=== PATIENT | female | born 1950 | race Caucasian/White ===

== ENCOUNTER → 2016-08-18 | Outpatient (CLI) | payer MEDICARE ==
[2016-08-18 13:04] VITALS: BP 132/74; PULSE 79; RESP 18
--- NOTE | 2016-08-18 19:53 | P.PN ---
Subjective This is follow-up visit for this patient with a history of severe and chronic pain secondary to osteoarthritis of both the hip joint status post right total hip replacement with complication of infection and she had multiple surgical intervention on her right hip and she had multiple surgical interventions on her right shoulder, she continued to have pain, he is wheelchair-bound and she is not able to ambulate, and she is not candidate for any interventional pain management injection,, and is currently on pain medications 1-opana ER 20 mg twice a day 2- Dilaudid 8 mg every 4 hours when necessary for breakthrough pain 3-Pamelor 25 mg daily at bedtime 4-Provigil 200 mg every morning (patient had obstructive sleep apnea ) Patient denies any side effects of the medication, denies excessive drowsiness or sleepiness, denies suicidal ideation, and reports that the current pain medication is NOT helping To control the pain and improve activity of daily living the VAS 10 /10 without the medications ,and it drope to 7-8 /10 with the medication, he should report that there is some improvement in her pain control , and she feels the curent medication helping her more than the previous medication Physical Examinations : 1-Constitutiona : Cooperative , not in acute distress . 2-HEENT : nech ; supple , no Lymphadenopathy , no Thyromegaly , normal thyroid size . eyes : no ptosis , no icterus, no photophobia . ENT : normal of hearing , normal oropharynx , no Thrush . 3- Respiratory : Chest clear to auscultations Bilaterally , no wheezing , no Rhonchi . 4- Cardiovascular : regular rate and rhythem , S1 , S2 , no S3 , no S4. 5- Gastrointestinal : abdomen soft no tenderness , bowel sounds positive all four quadrents , no organomegally . 6- Genitourinary : Defferred . 7- neurologic : Cranial nerve II to XII intact , no focal neurological deffecit . 8-psychatric : alert , oriented X 3 , appropriate affect , intact judgment and insight . 9-Lymphatic : no Lymphadenopathy . 10- musculoskeltal : Patient is wheelchair-bound not able to ambulate, limited movement in the shoulder and the head joint Assessment and plan = Chronic pain syndrome secondary to osteoarthritis of the shoulder joint and osteoarthritis of the hip joint status post hip replacement with complication of infection, we tried multiple pain medications didn't help to control her pain , currently patient feels there is some improvement in her pain control with the Opana 20 mg twice a day, for this reason I will increase Opana to 30 mg twice a day and patient would continue Dilaudid 8 mg every 4 hours for breakthrough pain, and will continue Pamelor 25 mg daily at bedtime, to help to improve her mood and help her sleep and also improve her pain control, and patient will continue to use Provigil 200 mg every morning because patient had obstructive sleep apnea, Objective - Vital Signs Vital signs: Vital Signs Temp Pulse 79 08/18/16 13:00 Resp 18 08/18/16 13:00 BP 132/74 08/18/16 13:00 Pulse Ox 89 L 08/18/16 13:00 Intake & Output 08/18/16 08/18/16 08/19/16 06:59 18:59 06:59 Weight 56.699 kg
== END | disposition home or self-care (01) ==
LOC: PNWHC3 12:34
PROVIDERS: ATTEND Specialist
DX: M19.011 Primary osteoarthritis, right shoulder (principal); M16.11 Unilateral primary osteoarthritis, right hip; G89.4 Chronic pain syndrome; Z96.641 Presence of right artificial hip joint; Z79.899 Other long term (current) drug therapy; Z99.3 Dependence on wheelchair
CPT/HCPCS: 99211

== ENCOUNTER → 2016-09-28 | Outpatient (CLI) | payer MEDICARE ==
[2016-09-28 12:22] VITALS: BP 103/67; PULSE 69; RESP 16; TEMP 97.8
--- NOTE | 2016-09-29 12:02 | P.PN ---
Subjective This is follow-up visit for this patient with a history of severe and chronic low back pain secondary to osteoarthritis of the hip joint status post right total hip replacement with complication of infection and multiple surgical intervention, and she continued to have generalized pain especially in her right hip and also she had right shoulder pain, she is wheelchair bound, he cannot ambulate and she is not a candidate to any pain management interventions, , and is currently on pain medications 1-opana 30 mg twice a day 2-Dilaudid 8 mg every 4 hours Patient denies any side effects of the medication, denies excessive drowsiness or sleepiness, denies suicidal ideation, and reports that the current pain medication is NOT helping To control the pain and improve activity of daily living Patient reported that her insurance did not approve the Dilaudid 8 mg every 4 hours even though recent prior authorization papers for her insurance company and it was not approved she got only partial amount of the Dilaudid 8 mg every 4 hours Physical Examinations : 1-Constitutiona : Cooperative , not in acute distress . 2-HEENT : nech ; supple , no Lymphadenopathy , no Thyromegaly , normal thyroid size . eyes : no ptosis , no icterus, no photophobia . ENT : normal of hearing , normal oropharynx , no Thrush . 3- Respiratory : Chest clear to auscultations Bilaterally , no wheezing , no Rhonchi . 4- Cardiovascular : regular rate and rhythem , S1 , S2 , no S3 , no S4. 5- Gastrointestinal : abdomen soft no tenderness , bowel sounds positive all four quadrents , no organomegally . 6- Genitourinary : Defferred . 7- neurologic : Cranial nerve II to XII intact , no focal neurological deffecit . 8-psychatric : alert , oriented X 3 , appropriate affect , intact judgment and insight . 9-Lymphatic : no Lymphadenopathy . 10- musculoskeltal : exams of the cervical spine = patient is not able to ambulate wheelchair-bound, Any movement of the hip joint or shoulder joint associated with severe pain, arthritic changes in the hand bilaterally/wrists bilaterally Assessment and plan = chronic pain syndrome secondary to also arthritis of the shoulder/hip with complication of infection - chronic and current use of high-risk medication (Opioids). The patient was counseled about risk of opioid use, psychological risk associated with opioids and was orally counseled to not overuse , divert,or sell dictations to take medications as prescribed only , and to restore medication in safe location , and the patient counseled against driving while using narcotic medications, and also not to use alcohol or any illicit recreational drugs, the patient's verbalized understanding that the lack of compliance will result in failure to renew narcotic prescription and possible discharge from the clinic - diagnoses, prognosis, and treatment options including but not limited to physical therapy, surgical interventions, interventional therapies , and medication management including narcotics and adjuvant medication were discussed with the patient and all The questions answered -medication management =1-continue opana 30 mg twice a day 2- discontinue Dilaudid (her insurance did not approve the full amount of 8 mg every 4 hours ) 2-continue Provigil 200 mg every morning 3-decrease nortriptyline to 20 mg daily at bedtime (currently 25 mg daily at bedtime ). 4-start patient on oxycodone 20 mg every 6 hours when necessary for breakthrough pain dispensing 120 -procedure= none at this time , patient will follow up in the pain clinic in 1 month's Objective - Vital Signs Vital signs: Vital Signs Temp 97.8 F 09/28/16 12:11 Pulse 69 09/28/16 12:11 Resp 16 09/28/16 12:11 BP 103/67 09/28/16 12:11 Pulse Ox 98 09/28/16 12:11 Intake & Output 09/28/16 09/29/16 09/29/16 18:59 06:59 18:59 Weight 56.699 kg
== END | disposition home or self-care (01) ==
LOC: PNWHC3 11:50
PROVIDERS: ATTEND Specialist
DX: G89.4 Chronic pain syndrome (principal); M16.7 Other unilateral secondary osteoarthritis of hip; M19.011 Primary osteoarthritis, right shoulder; Z99.3 Dependence on wheelchair; Z79.891 Long term (current) use of opiate analgesic; Z96.641 Presence of right artificial hip joint
CPT/HCPCS: 99211

== ENCOUNTER → 2016-11-23 | Outpatient (CLI) | payer MEDICARE ==
[2016-11-23 12:34] VITALS: BP 107/75; PULSE 74; RESP 16; TEMP 96.9
--- NOTE | 2016-11-23 12:57 | P.PN ---
Progress Note - Text Patient returns for followup for chronic back and hip pain, s/p RIO complicated by multiple infections. Patient continues on only Opana medications for pain with some relief, as Dilaudid and oxycodone scripts were not covered by patient' s insurance secondary to high opioid doses. Patient denies adverse drug effects from medications. Today, pt denies new-onset weakness, bowel/bladder incontinence, or any other signs or symptoms of cauda equina syndrome. There are no signs of acute intoxication, and no indications of medication diversion or overuse. In addition to above, 13-point review of systems is also negative for chest pain , shortness of breath, changes in vision, changes in hearing, new onset weakness , abdominal pain, diarrhea, extreme fatigue, malaise, fever, skin changes, homicidal or suicidal ideation, or bowel or bladder incontinence. Vital Signs: Reviewed in EMR Gen: WDWN, AAOx3, NAD, wheelchair-bound HEENT: NCAT, EOMI, hearing grossly normal Pulm: resp unlabored Abd: soft, NT, ND Neck: supple, trachea midline ROM in flexion lumbar spine: reduced ROM in extension lumbar spine: reduced Lumbar paravertebral tenderness: + Facet loading: + bilateral Straight leg raise: not performed Imaging: Reviewed in EMR Assessment: 1. hip OA 2. chronic pain syndrome Plan: 1. Explanation: Opioid and psychological risk scores were reviewed. Diagnoses , prognoses, and multiple treatment options including but not limited to physical therapy, interventional therapies, adjuvant medical therapies, narcotic medication therapies, and surgery were discussed with the patient and all questions were answered to the patient's satisfaction. 2. Opioid agreement: Patient has previously signed narcotic agreement, and was orally counseled to not overuse, abuse, divert, or cell medications, and to take them as prescribed by only 1 healthcare provider. The patient was also counseled to store opioid medications in a safe and preferably locked location. Patient was also counseled against driving or operating heavy equipment while using narcotic medications and also to not use alcohol or any illicit or recreational drugs. The patient verbalized understanding that lack of compliance with any of the above and likely result in failure to renew narcotic prescriptions, possible discharge from the clinic, and possible legal ramifications thereafter if indicated. 3. Counseling: The patient was counseled extensively on marijuana and how use of opioids along with it is inappropriate. 4. Procedures: none 5. Consultations: None 6. Investigations: None 7. Medications: Opana 30 mg #60 with one refill; Pamelor 20 mg po qhs prn insomnia 10 mg #60 with two refills 8. Disposition: f/u as needed. Patient has applied for medical marijuana card and will come back to our clinic as needed. Marijuana clinic or PCP can downtitrate Opana if needed as well. PQRS measures: 1-Patient's medications are documented in the chart. 2-Tobacco use is negative 3-Patient has not had a pneumococcal vaccine. 4-Advanced care planning discussed, patient unable to give. 5-Opioid contract signed with the patient. 6-Pain positive, follow-up visit or procedure scheduled 7-Patient's blood pressure measured and documented, and WNL. 8-Patient's weight was measured, and body mass index ABOVE the normal limits, and counseling was done. Patient instructed to follow up with PCP. 9-Patient WAS NOT identified as an unhealthy alcohol user.
== END | disposition home or self-care (01) ==
LOC: PNWHC3 12:12
PROVIDERS: ATTEND Anesthesiology
DX: M16.9 Osteoarthritis of hip, unspecified (principal); G89.4 Chronic pain syndrome; M54.9 Dorsalgia, unspecified; Z79.891 Long term (current) use of opiate analgesic
CPT/HCPCS: 99211

== ENCOUNTER → 2017-12-14 | Outpatient (CLI) | payer MEDICARE ==
[2017-12-14 11:52] LABS: INR 1.1 (<1.2); Prothrombin Time 10.4 sec (9.0-12.0)
[2017-12-14 12:04] LABS: Calcium 9.3 mg/dL (8.4-10.2); Potassium 4.5 mmol/L (3.5-5.1); Total Bilirubin 0.4 mg/dL (0.2-1.3); Total Protein 7.4 g/dL (6.3-8.2)
--- NOTE | 2017-12-14 12:23 | US ---
EXAMINATION TYPE: US abdomen limited DATE OF EXAM: 12/14/2017 COMPARISON: NONE CLINICAL HISTORY: 67-year-old female Hepatitis C B19.20. Prior cholecystectomy. TECHNIQUE: Multiple sonographic images of the right upper quadrant are obtained. FINDINGS: EXAM MEASUREMENTS: Liver Length: 14.1 cm Gallbladder: Surgically absent CBD: 0.3 cm Right Kidney: 8.8 x 4.5 x 4.8 cm Sonography notes: Patient is wheelchair bound and has to help move patient, very little mobil ity Pancreas: not seen due to bowel gas Liver: limited views, intercostal images only, difficult to adequately visualized. Gallbladder: Surgically absent CBD: wnl Right Kidney: Mildly atrophic. No hydronephrosis. IMPRESSION: 1. Exam limitations due to patient's limited mobility. Most of the imaging of the liver was performed intercostally. Very difficult to adequately visualize. If patient has chronic hepatitis C and assess ment for hepatoma is desired, consider liver MRI. 2. Status post cholecystectomy.
[2017-12-17 14:07] LABS: HCV Quant Log 6.52 (<1.08)
== END | disposition home or self-care (01) ==
LOC: RADUSWWP 10:43
PROVIDERS: ATTEND Internal Medicine Infectious Disease
DX: B19.20 Unspecified viral hepatitis C without hepatic coma (principal); Z90.49 Acquired absence of other specified parts of digestive tract
CPT/HCPCS: 36415; 76705; 80053; 84134; 85610; 87522

== ENCOUNTER → 2018-01-05 | Outpatient (CLI) | payer MEDICARE ==
--- NOTE | 2018-01-06 05:10 | MR ---
EXAMINATION TYPE: MR liver wo/w con DATE OF EXAM: 01/05/2018 COMPARISON: NONE HISTORY: Recommended From Ultrasound, ? HepC, Gadavist 6ml CONTRAST: Standard multiplanar, multisequence MRI departmental protocol utilizing 6 mL intravenous Gadavist nallely olinium contrast. FINDINGS: The bile ducts are somewhat dilated. The common bile duct measures up to 1.4 cm. Pancreatic duct measures up to 5 mm. Intrahepatic bile ducts are prominent. There is a 2.2 cm cyst in the left lobe of the liver. There is no evidence of pancreatic mass. Spleen shows no focal defect. There is no sign of ascites. There is no adrenal mass. There is mild renal cortical atrophy. There is no hydrone phrosis. There is no sign of retroperitoneal adenopathy. I see no definite filling defect in the comm on bile duct. IMPRESSION: There is a cyst in the left lobe of the liver. There is some dilation of the biliary tree more than I would expect for postcholecystectomy patient. The distal common bile duct obstructing lesion is not identified. There was a relatively small measurement for the common bile duct of 3 mm on the recent u ltrasound exam of 12/14/2017. Unfortunately the previous ultrasound exam was suboptimal. Since the last exam was not optimal it is not clear if there is a change in the size of the biliary tree. If this p atient does not have signs of a biliary obstruction then this appearance of the bile ducts could be t he patient's stable size.
== END | disposition home or self-care (01) ==
LOC: RADMRIMAIN 17:51
PROVIDERS: ATTEND Internal Medicine Infectious Disease
DX: K76.89 Other specified diseases of liver (principal); B18.2 Chronic viral hepatitis C; Z98.890 Other specified postprocedural states
CPT/HCPCS: 74183; A9581

== ENCOUNTER 2018-08-04 18:13 | Emergency (ER) | payer MEDICARE ==
--- NOTE | 2018-08-04 19:25 | ED ---
General Adult HPI - General Chief complaint: Recheck/Abnormal Lab/Rx Stated complaint: CHEST WHEEZING POSS BLOODCLOT Time Seen by Provider: 08/04/18 19:07 Source: patient, family, RN notes reviewed, old records reviewed Mode of arrival: wheelchair Limitations: no limitations - History of Present Illness Initial comments: 67-year-old female history of rheumatoid arthritis presenting for evaluation of wheezing. Patient's symptoms began approximately one week ago. Patient was sent by primary care physician for computed tomography scan, this was unable to be completed that outpatient CT, was recommended the patient presented to the emergency department for evaluation. Return to the patient's family showed some abnormalities on chest x-ray, primary care physician was concerned about these markings as well as concern for pulmonary embolism. She has recent hip replacement approximately 3 weeks ago. Denies chest pain, denies significant dyspnea. Denies fever. Denies abdominal pain nausea or vomiting. - Related Data Home Medications Medication Instructions Recorded Confirmed Cholecalciferol [Vitamin D3] 1,000 units PO DAILY 12/11/13 08/04/18 Levothyroxine Sodium [Synthroid] 112 mcg PO DAILY 12/11/13 08/04/18 predniSONE 5 mg PO HS 12/11/13 08/04/18 Diphenox-Atrop 2.5-0.025 mg 1 tab PO QID PRN 03/20/14 08/04/18 [Lomotil] Brimonidine Tartrate/Timolol 1 drop BOTH EYES BID 12/24/15 08/04/18 [Combigan 0.2%/0.5% Ophth Soln] Calcium Carbonate/Vitamin D3 1 tab PO DAILY 12/24/15 08/04/18 [Calcium 600 + Vit D Tablet] DULoxetine HCL [Cymbalta] 60 mg PO BID 12/24/15 08/04/18 Penicillin V Potassium [Pen Vee K] 500 mg PO BID 12/24/15 08/04/18 Cyanocobalamin [Vitamin B-12 1,000 mcg SQ Q14D 08/04/18 08/04/18 Injection] Dorzolamide 2% [Trusopt 2%] 1 drops BOTH EYES BID 08/04/18 08/04/18 Ergocalciferol (Vitamin D2) 50,000 unit PO WE 08/04/18 08/04/18 [Vitamin D2] Fluconazole [Diflucan] 200 mg PO DAILY 08/04/18 08/04/18 Latanoprost [Xalatan 0.005%] 1 drop BOTH EYES HS 08/04/18 08/04/18 Methadone [Dolophine] 7.5 mg PO DAILY 08/04/18 08/04/18 Nortriptyline [Pamelor] 50 mg PO HS 08/04/18 08/04/18 Previous Rx's Medication Instructions Recorded Azithromycin [Zithromax Z-pack] 0 mg PO DIRECTED #6 tab 08/04/18 Allergies Allergy/AdvReac Type Severity Reaction Status Date / Time cefepime Allergy Severe Rash/Hives Verified 08/04/18 19:23 Review of Systems ROS Statement: Those systems with pertinent positive or pertinent negative responses have been documented in the HPI. ROS Other: All systems not noted in ROS Statement are negative. Past Medical History Past Medical History: Eye Disorder, GI Bleed, Rheumatoid Arthritis (RA), Sleep Apnea/CPAP/BIPAP, Thyroid Disorder Additional Past Medical History / Comment(s): beginning of glaucoma History of Any Multi-Drug Resistant Organisms: MRSA Date of last positivie culture/infection: 09/2014 MDRO Source:: right hip wound Past Surgical History: Back Surgery, Cholecystectomy Additional Past Surgical History / Comment(s): bilateral wrist surgery, neck surgery x 2, bilateral foot surgery, ORIF right femur, right hip replacement x 6 , left elbow surgery, left knee replacement, back surgery x 2 Past Anesthesia/Blood Transfusion Reactions: Blood Transfusion Reaction Additional Past Anesthesia/Blood Transfusion Reaction / Comment(s): Developed fever during blood transfusion in 2015 at [facility]. Past Psychological History: No Psychological Hx Reported Smoking Status: Former smoker Past Alcohol Use History: Daily Past Drug Use History: None Reported - Past Family History Mother Family Medical History: Cancer, COPD, Hypertension, Rheumatoid Arthritis (RA) Father Family Medical History: COPD, Hypertension, Pulmonary Embolus Additional Family Medical History / Comment(s): States father had blood clots in lungs. General Exam Limitations: no limitations General appearance: alert, in no apparent distress Head exam: Present: atraumatic, normocephalic Eye exam: Present: normal appearance, PERRL ENT exam: Present: normal exam Neck exam: Present: normal inspection, tenderness Respiratory exam: Present: normal lung sounds bilaterally. Absent: respiratory distress, wheezes, rales Cardiovascular Exam: Present: regular rate, normal rhythm GI/Abdominal exam: Present: soft. Absent: distended, tenderness, guarding Extremities exam: Present: normal inspection. Absent: normal capillary refill, pedal edema Neurological exam: Present: alert, oriented X3 Psychiatric exam: Present: normal affect, normal mood Skin exam: Present: warm, dry, intact. Absent: cyanosis, diaphoretic Course Vital Signs 08/04/18 08/04/18 18:44 20:47 Temperature 97.9 F Pulse Rate 91 96 Respiratory 18 17 Rate Blood Pressure 136/89 138/83 O2 Sat by Pulse 94 L 94 L Oximetry EKG Findings - EKG Comments: EKG Findings:: EKG normal sinus rhythm, poor baseline secondary to artifact, no definitive signs of acute ischemia, no ST segment elevation, rate of 91, LA interval 168, QRS duration 86, QTC 469 Medical Decision Making - Medical Decision Making 67-year-old female presenting from primary care office with wheezing, abnormal chest x-ray, concern for pulmonary embolism. Laboratory studies obtained, patient has normal CBC, normal white count, stable hemoglobin, normal CMP normal access, troponin negative, CT angiography is obtained in the emergency department, negative for PE, there was some pleural thickening and consolidation measuring 2 cm the right lung base. Patient will have this reevaluated by her primary care physician 6 months. No other acute findings. Patient was prescribed albuterol inhaler by her primary care physician, she will have this filled, she will also be started on antibiotic for possibility of developing pneumonia. CT findings were described to the patient will follow with primary care physician regarding these findings. - Lab Data Result diagrams: 08/04/18 19:44 08/04/18 19:44 Lab Results 08/04/18 08/04/18 08/04/18 Range/Units 19:44 19:44 19:44 WBC 7.5 (3.8-10.6) k/uL RBC 3.81 (3.80-5.40) m/uL Hgb 12.5 (11.4-16.0) gm/dL Hct 38.1 (34.0-46.0) % MCV 100.0 D (80.0-100.0) fL MCH 32.8 (25.0-35.0) pg MCHC 32.8 (31.0-37.0) g/dL RDW 13.4 (11.5-15.5) % Plt Count 257 (150-450) k/uL Neutrophils % 73 % Lymphocytes % 14 % Monocytes % 9 % Eosinophils % 3 % Basophils % 0 % Neutrophils # 5.5 (1.3-7.7) k/uL Lymphocytes # 1.1 (1.0-4.8) k/uL Monocytes # 0.7 (0-1.0) k/uL Eosinophils # 0.2 (0-0.7) k/uL Basophils # 0.0 (0-0.2) k/uL PT (9.0-12.0) sec INR (<1.2) APTT (22.0-30.0) sec Sodium 140 (137-145) mmol/L Potassium 4.0 (3.5-5.1) mmol/L Chloride 105 (98-107) mmol/L Carbon Dioxide 25 (22-30) mmol/L Anion Gap 10 mmol/L BUN 21 H (7-17) mg/dL Creatinine 0.95 (0.52-1.04) mg/dL Est GFR (CKD-EPI)AfAm 72 (>60 ml/min/1.73 sqM) Est GFR (CKD-EPI)NonAf 63 (>60 ml/min/1.73 sqM) Glucose 90 (74-99) mg/dL Calcium 9.7 (8.4-10.2) mg/dL Total Bilirubin 0.3 (0.2-1.3) mg/dL AST 33 (14-36) U/L ALT 25 (9-52) U/L Alkaline Phosphatase 128 H (38-126) U/L Total Creatine Kinase 42 (30-135) U/L CK-MB (CK-2) 1.1 (0.0-2.4) ng/mL CK-MB (CK-2) Rel Index 2.6 Troponin I <0.012 (0.000-0.034) ng/mL Total Protein 8.0 (6.3-8.2) g/dL Albumin 4.1 (3.5-5.0) g/dL 08/04/18 Range/Units 19:44 WBC (3.8-10.6) k/uL RBC (3.80-5.40) m/uL Hgb (11.4-16.0) gm/dL Hct (34.0-46.0) % MCV (80.0-100.0) fL MCH (25.0-35.0) pg MCHC (31.0-37.0) g/dL RDW (11.5-15.5) % Plt Count (150-450) k/uL Neutrophils % % Lymphocytes % % Monocytes % % Eosinophils % % Basophils % % Neutrophils # (1.3-7.7) k/uL Lymphocytes # (1.0-4.8) k/uL Monocytes # (0-1.0) k/uL Eosinophils # (0-0.7) k/uL Basophils # (0-0.2) k/uL PT 9.8 (9.0-12.0) sec INR 0.9 (<1.2) APTT 22.9 (22.0-30.0) sec Sodium (137-145) mmol/L Potassium (3.5-5.1) mmol/L Chloride (98-107) mmol/L Carbon Dioxide (22-30) mmol/L Anion Gap mmol/L BUN (7-17) mg/dL Creatinine (0.52-1.04) mg/dL Est GFR (CKD-EPI)AfAm (>60 ml/min/1.73 sqM) Est GFR (CKD-EPI)NonAf (>60 ml/min/1.73 sqM) Glucose (74-99) mg/dL Calcium (8.4-10.2) mg/dL Total Bilirubin (0.2-1.3) mg/dL AST (14-36) U/L ALT (9-52) U/L Alkaline Phosphatase (38-126) U/L Total Creatine Kinase (30-135) U/L CK-MB (CK-2) (0.0-2.4) ng/mL CK-MB (CK-2) Rel Index Troponin I (0.000-0.034) ng/mL Total Protein (6.3-8.2) g/dL Albumin (3.5-5.0) g/dL Disposition Clinical Impression: Pneumonia Disposition: HOME SELF-CARE Condition: Good Instructions: Pneumonia (ED) Prescriptions: Azithromycin [Zithromax Z-pack] 0 mg PO DIRECTED #6 tab Is patient prescribed a controlled substance at d/c from ED?: No Referrals: Sotero Worthy MD [Primary Care Provider] - 1-2 days Time of Disposition: 21:47
[2018-08-04 20:07] LABS: Albumin 4.1 g/dL (3.5-5.0); Calcium 9.7 mg/dL (8.4-10.2); Total Bilirubin 0.3 mg/dL (0.2-1.3)
[2018-08-04 20:08] LABS: INR 0.9 (<1.2); Partial Thromboplastin Time 22.9 sec (22.0-30.0); Prothrombin Time 9.8 sec (9.0-12.0)
[2018-08-04 20:12] LABS: Basophils % (A) 0 %; Eosinophils # (A) 0.2 k/uL (0-0.7); Eosinophils % (A) 3 %; HCT 38.1 % (34.0-46.0); HGB 12.5 gm/dL (11.4-16.0); Lymphocytes # (A) 1.1 k/uL (1.0-4.8); Lymphocytes % (A) 14 %; MCH 32.8 pg (25.0-35.0); MCHC 32.8 g/dL (31.0-37.0); Mean Platelet Volume 6.9; Monocytes # (A) 0.7 k/uL (0-1.0); Monocytes % (A) 9 %; Neutrophils # (A) 5.5 k/uL (1.3-7.7); Neutrophils % (A) 73 %; Platelet Count 257 k/uL (150-450); RBC 3.81 m/uL (3.80-5.40); RDW 13.4 % (11.5-15.5); WBC 7.5 k/uL (3.8-10.6)
[2018-08-04 20:14] LABS: Creatine Kinase 42 U/L (30-135)
[2018-08-04 20:28] LABS: Creatine Kinase MB 1.1 ng/mL (0.0-2.4); Troponin I <0.012 ng/mL (0.000-0.034)
--- NOTE | 2018-08-04 21:38 | CT ---
EXAMINATION TYPE: CT angio chest DATE OF EXAM: 08/04/2018 9:14 PM COMPARISON: None HISTORY: Shortness of breath. CT DLP: 350 mGycm Automated exposure control for dose reduction was used. CONTRAST: CTA scan of the thorax is performed with IV Contrast, patient injected with 100ml mL of Isovue 370, p ulmonary embolism protocol. There are 3-D post processed images.. FINDINGS: There is mild pleural thickening and subsegmental atelectasis in the posterior lung dominguez. There is multilevel posterior thoracic and lumbar fusion surgery. There is no thoracic paraspinal mass. There is more noticeable pleural thickening and density that measures 2 cm at the right posterior lung base . Thoracic aorta shows mild atheromatous change. Ascending aorta measures 4 cm. There is no evidence of dissection. There is normal contrast opacification of the pulmonary arteries. There are no filling defects. There is no pericardial effusion. There is no mediastinal adenopathy. There are no hilar masses. IMPRESSION: NO EVIDENCE OF PULMONARY EMBOLISM. PLEURAL THICKENING IN PULMONARY CONSOLIDATION AT THE RIGHT POSTERI OR LUNG BASE. FOLLOW-UP IS RECOMMENDED TO SHOW STABILITY OR CLEARING.
[2018-08-04 22:03] VITALS: BP 123/88; PULSE 93; RESP 18; TEMP 97.6
== END 2018-08-04 22:03 | disposition home or self-care (01) ==
LOC: EC 18:13
DX: J18.9 Pneumonia, unspecified organism (principal); M06.9 Rheumatoid arthritis, unspecified; G47.30 Sleep apnea, unspecified; Z99.89 Dependence on other enabling machines and devices; E07.9 Disorder of thyroid, unspecified; H40.9 Unspecified glaucoma; Z86.14 Personal history of Methicillin resistant Staphylococcus aureus infection; Z87.891 Personal history of nicotine dependence; Z79.52 Long term (current) use of systemic steroids; Z79.899 Other long term (current) drug therapy; Z88.1 Allergy status to other antibiotic agents; Z96.641 Presence of right artificial hip joint; Z96.652 Presence of left artificial knee joint
CPT/HCPCS: 36415; 93005; 80053; 82550; 82553; 84484; 85025; 85610; 85730; 71275; 99285; Q9967

== ENCOUNTER → 2018-12-27 | Outpatient (CLI) | payer MEDICARE ==
[~2018-12-27] MED LIST: DENOSUMAB 60 MG/ML 1 ML SYRINGE SQ ONE
[2018-12-27 10:51] VITALS: BP 114/69; PULSE 76; RESP 16; TEMP 98.4
== END ==
LOC: PROCWHC3 10:32
PROVIDERS: ATTEND Internal Medicine
DX: M81.0 Age-related osteoporosis without current pathological fracture (principal)
CPT/HCPCS: 96372; J0897

== ENCOUNTER → 2019-07-03 | Outpatient (CLI) | payer MEDICARE ==
[~2019-07-03] MED LIST changes: +DENOSUMAB 60 MG/ML 1 ML SYRINGE SQ NR; -DENOSUMAB 60 MG/ML 1 ML SYRINGE SQ ONE
[2019-07-03 10:26] VITALS: BP 111/72; PULSE 80; RESP 14
== END | disposition home or self-care (01) ==
LOC: PROCWHC3 10:12
PROVIDERS: ATTEND Internal Medicine
DX: M81.0 Age-related osteoporosis without current pathological fracture (principal)
CPT/HCPCS: 96372; J0897

== ENCOUNTER → 2020-01-02 | Outpatient (CLI) | payer MEDICARE ==
[2020-01-02 14:05] VITALS: BP 141/92; PULSE 84; RESP 16; TEMP 97.6
== END | disposition home or self-care (01) ==
LOC: PROCWHC3 13:54
PROVIDERS: ATTEND Internal Medicine
DX: M81.0 Age-related osteoporosis without current pathological fracture (principal)
CPT/HCPCS: 96372; J0897

== ENCOUNTER → 2020-07-09 | Outpatient (CLI) | payer MEDICARE ==
[2020-07-09 13:30] VITALS: BP 110/76; PULSE 76; RESP 16; TEMP 98.3
== END | disposition home or self-care (01) ==
LOC: PROCWHC3 13:05
PROVIDERS: ATTEND Internal Medicine
DX: M81.0 Age-related osteoporosis without current pathological fracture (principal)
CPT/HCPCS: 96372

== ENCOUNTER → 2021-01-09 | Outpatient (CLI) | payer MEDICARE ==
[2021-01-09 12:57] VITALS: BP 134/77; PULSE 77; RESP 16; TEMP 97.6
== END ==
LOC: PROCWHC3 12:40
PROVIDERS: ATTEND Family Medicine
DX: M81.0 Age-related osteoporosis without current pathological fracture (principal); Z88.1 Allergy status to other antibiotic agents
CPT/HCPCS: 96372; J0897

== ENCOUNTER → 2021-07-17 | Outpatient (CLI) | payer MEDICARE ==
[2021-07-17 12:52] VITALS: BP 137/90; PULSE 73; RESP 16; TEMP 97.8
[2021-07-17] MEDS: DENOSUMAB 60 MG/ML 1 ML SYRINGE SQ NR (12:53)
== END ==
LOC: PROCWHC3 12:35
PROVIDERS: ATTEND Family Medicine
DX: M81.0 Age-related osteoporosis without current pathological fracture (principal); Z88.1 Allergy status to other antibiotic agents
CPT/HCPCS: 96372; J0897